=== PATIENT | male | born 1940 | race Caucasian/White ===

== ENCOUNTER 2018-09-15 16:09 | Emergency (ER) | payer MEDICARE, OTHER ==
[~2018-09-15] VITALS: Ht 177.8 cm; Wt 72.6 kg
[~2018-09-15 16:09] MED LIST: ASP81TEC PO; CROMOLYN SODIUM; DOXA2TAB2 PO; LISI10TA PO; OMEP20CA12 PO; OXYC-272 PO; TMZP15C PO; VALERIAN ROOT PO; [UNRECOGNIZED DRUG - OTHER] PO
--- OUTSIDE RECORDS SUMMARY | 2018-09-15 16:26 | XMS REPORT | Continuity of Care Document ---
Author Author [facility] Organization [facility] Address Unknown Phone Unavailable Allergies Active Description Code Type Severity Reaction Onset Reported/Identified Relationship to Patient Clinical Status Yes Sulfa (Sulfonamide Antibiotics) [id number] Drug Allergy Mild N/A 2018 Medications There is no data. Problems Date Dx Coded Attending Type Code Diagnosis Diagnosed By 10/25/2010 Ot 605 11/06/2010 Ot 300.00 11/06/2010 Ot 401.9 11/06/2010 Ot 530.81 11/06/2010 Ot 564.1 11/06/2010 Ot 600.91 11/06/2010 Ot 724.2 11/06/2010 Ot 780.52 04/27/2013 RENETTA JONAS MD Ot 211.3 BENIGN NEOPLASM LG BOWEL 04/27/2013 RENETTA JONAS MD Ot 562.10 DIVERTICULOSIS COLON (W/O MENT OF HEMORR 04/27/2013 RENETTA JONAS MD Ot V76.51 SCREEN MAL NEOP-COLON 05/04/2015 Ot 605 05/04/2015 Ot V72.81 05/04/2015 Ot V74.8 05/04/2015 RENETTA JONAS MD Ot V72.84 05/04/2015 RENETTA JONAS MD Ot V72.84 08/29/2017 RENETTA JONAS MD Ot V72.84 EXAM PRE-OPERATIVE NOS 08/29/2017 RENETTA JONAS MD Ot V72.84 EXAM PRE-OPERATIVE NOS 09/15/2018 RENETTA JONAS MD Ot V72.84 EXAM PRE-OPERATIVE NOS 09/15/2018 RENETTA JONAS MD Ot V72.84 EXAM PRE-OPERATIVE NOS Procedures There is no data. Results There is no data. Encounters ACCT No. Visit Date/Time Discharge Status Pt. Type Provider Facility Loc./Unit Complaint [id number] 04/27/2013 08:00:00 04/27/2013 11:45:00 DIS Outpatient RENETTA JONAS MD [facility] ROUTINE SCREENING [id number] 04/21/2013 08:49:00 04/21/2013 23:59:59 CLS Outpatient RENETTA JONAS MD [facility] PREOP SCREENING [id number] 04/14/2013 12:05:00 04/14/2013 23:59:59 CLS Outpatient RENETTA JONAS MD [facility] PREOP SCREENING [id number] 09/15/2018 16:12:00 ACT Emergency ALEXANDER BRANCH MD [facility] ER PRESSURE BUILDING AT THE BASE OF SKULL [id number] 11/06/2010 05:29:00 Document Registration [id number] 10/25/2010 06:06:00 Document Registration [id number] 10/22/2010 10:10:00 Document Registration
--- OUTSIDE RECORDS SUMMARY | 2018-09-15 16:26 | XMS REPORT | Continuity of Care Document ---
Author Author [facility] Organization [facility] Address Unknown Phone Unavailable Support Name Relationship Address Phone MASTER SERRANO Next Of Kin [address] [place] [address] Insurance Providers Payer Name Policy Number Subscriber Name Relationship [facility] [id number] Colleen Serrano 01 Self / Same As Patient Advance Directives Directive Response Recorded Date Advance Directives N 04/27/13 8:07am Organ Donor Y 04/27/13 8:07am Problems No Known Problems or Medical conditions. Family History History Response Recorded Date/Time Hx Family Cancer Y father prostate 6:23am Hx Family Breast Cancer N 11/06/10 6: 23am Hx Family Lung Cancer N 11/06/10 6:23am Hx Family Colorectal Cancer N 11/06/10 6: 23am Hx Family Cardiac Disorders N 11/06/10 6: 23am Hx Family Stroke N 11/06/10 6:23am Allergies, Adverse Reactions, Alerts Allergen Type Severity Reaction Last Updated Sulfa (Sulfonamide Antibiotics) Allergy Mild 12/31/06 Medications Medication Dose Units Route Sig Qty Days [Cromolyn Sodium] Doxazosin Mesylate 2 Mg PO HS Omeprazole 1 Cap PO daily ac Oxycodone Hcl/Acetaminophen (Percocet 10-325 Mg Tablet) 1 Tab PO Q6H PRN Temazepam 1 Cap PO HS PRN [Valerian Root] 530 Mg PO HS PRN PRN Aspirin (Aspirin Ec 81 Mg) 81 Mg PO DAILY Lisinopril (Zestril) 10 Mg PO HS [Gastrorom] 100 Mg PO DAILY Response Recorded Date/Time Status not known Unknown Results Test Date Result Interp. Ref. Range Activated Partial Thromboplast Time November 06, 2010 3:40am 29 SEC N 24-35 Alanine Aminotransferase (ALT/SGPT) November 06, 2010 3:40am 37 U/L N 30-65 Albumin November 06, 2010 3:40am 3.6 G/DL N 3.4-5.0 Alkaline Phosphatase November 06, 2010 3:40am 68 U/L N 50-136 Aspartate Amino Transf (AST/SGOT) November 06, 2010 3:40am 21 U/L N 15-37 BUN/Creatinine Ratio November 06, 2010 3:40am 17 - Basophils # (Auto) November 06, 2010 3:40am 0.1 10^3/uL N 0.0-0.1 Basophils (%) (Auto) November 06, 2010 3:40am 1 % N 0-10 Blood Urea Nitrogen November 06, 2010 3:40am 17 MG/DL N 7-18 Calcium Level November 06, 2010 3:40am 9.3 MG/DL N 8.5-10.1 Carbon Dioxide Level November 06, 2010 3:40am 26 MMOL/L N 21-32 Chloride Level November 06, 2010 3:40am 103 MMOL/L N 101-110 Creatinine November 06, 2010 3:40am 1.0 MG/ DL N 0.6-1.3 Eosinophils # (Auto) November 06, 2010 3:40am 0.7 10^3/uL H 0.0-0.3 Eosinophils (%) (Auto) November 06, 2010 3:40am 9 % N 0-10 Glucose Level November 06, 2010 3:40am 88 MG/DL N 70-126 Hematocrit November 06, 2010 3:40am 43 % N 40-54 Hemoglobin November 06, 2010 3:40am 15.0 G/ DL N 13.3-17.7 Lymphocytes # (Auto) November 06, 2010 3:40am 2.8 X 10^3 N 1.0-4.0 Lymphocytes (%) (Auto) November 06, 2010 3:40am 39 % N 12-44 Magnesium Level November 06, 2010 3:40am 2.2 MG/DL N 1.8-2.4 Mean Corpuscular Hemoglobin November 06, 2010 3:40am 32 PG N 25-34 Mean Corpuscular Hemoglobin Concent November 06, 2010 3:40am 35 G/DL N 32-36 Mean Corpuscular Volume November 06, 2010 3:40am 90 FL N 80-99 Mean Platelet Volume November 06, 2010 3:40am 12.0 FL H 7.4-10.4 Monocytes # (Auto) November 06, 2010 3:40am 0.7 X 10^3 N 0.0-1.0 Monocytes (%) (Auto) November 06, 2010 3:40am 10 % N 0-12 Myoglobin November 06, 2010 3:40am 49 UG/L N 10-92 Neutrophils # (Auto) November 06, 2010 3:40am 2.9 X 10^3 N 1.8-7.8 Neutrophils (%) (Auto) November 06, 2010 3:40am 40 % L 42-75 Platelet Count November 06, 2010 3:40am 156 10^3/uL N 130-400 Potassium Level November 06, 2010 3:40am 3.9 MMOL/L N 3.6-5.0 Prothromb Time International Ratio November 06, 2010 3:40am 1.0 N 0.8-1.4 Prothrombin Time November 06, 2010 3:40am 13.0 SEC N 12.2-14.7 Red Blood Count November 06, 2010 3:40am 4.75 10^6/uL N 4.35-5.85 Red Cell Distribution Width November 06, 2010 3:40am 12.7 % N 10.0-14.5 Sodium Level November 06, 2010 3:40am 133 MMOL/L L 135-145 Total Bilirubin November 06, 2010 3:40am 0.3 MG/DL N 0.0-1.0 Total Protein November 06, 2010 3:40am 6.9 G/DL N 6.4-8.2 Troponin I November 06, 2010 3:40am < 0.10 MG/ML 0.00-0.10 White Blood Count November 06, 2010 3:40am 7.1 10^3/uL N 4.3-11.0 Lab Scanned Report November 06, 2010 5:29am Referred Lab Report [id number] - Estimat Glomerular Filtration Rate November 06, 2010 3:40am > 60 - Creatine Kinase November 06, 2010 9:58am 43 mg/dl N 21-170 Cardiac Panel Pathologist Review November 06, 2010 3:40am SEE CARDIAC PATH REV - Procedures Procedure Code Date KNEE ARTHROSCOPY/SURGERY 36079 12/31/06 KNEE ARTHROSCOPY/SURGERY 18841 12/31/06 CIRCUM 28 DAYS OR OLDER 38701 10/25/10 MRSA Screen 10/22/10 Encounters Encounter Location Date/Time Discharged Inpatient [facility] 5:29am
[2018-09-15] MEDS ORDERED: PROCHLORPERAZINE 10 MG/2ML INJ (COMPAZINE) IV ONE (16:30)
[2018-09-15] MEDS ORDERED: diphenhydrAMINE 50 MG/ML INJ (BENADRYL) IVP ONE (16:30)
[2018-09-15] MEDS ORDERED: KETOROLAC 30 MG/ML VIAL IVP ONE (16:30)
[2018-09-15] MEDS ORDERED: NS IV 1000 ML 1,000 ML IV SCH (16:30)
--- NOTE | 2018-09-15 16:40 | NUR ---
WHILE GIVING MEDS PATIENT ASKED WHY ARE YOU GIVING ME MEDS BEFORE YOU KNOW WHAT IS WRONG WITH ME INFORMED HIM THAT TRYING TO CONTROL HIS PAIN AND THAT HE CAN REFUSE.
--- NOTE | 2018-09-15 16:46 | NUR ---
TO CT PER W/C
[2018-09-15 16:58] LABS: BASOPHILS % (AUTO) 1 % (0-10); EOSINOPHILS # (AUTO) 0.6 10^3/uL (0.0-0.3); EOSINOPHILS % (AUTO) 7 % (0-10); HEMATOCRIT 42 % (40-54); HEMOGLOBIN 14.3 G/DL (13.3-17.7); LYMPHOCYTES # (AUTO) 2.7 X 10^3 (1.0-4.0); LYMPHOCYTES % (AUTO) 32 % (12-44); MEAN CORPUSCULAR HEMOGLOBIN 31 PG (25-34); MEAN CORPUSCULAR HGB CONC 34 G/DL (32-36); MEAN CORPUSCULAR VOLUME 89 FL (80-99); MEAN PLATELET VOLUME 12.5 FL (7.4-10.4); MONOCYTES # (AUTO) 0.9 X 10^3 (0.0-1.0); MONOCYTES % (AUTO) 10 % (0-12); NEUTROPHILS # (AUTO) 4.2 X 10^3 (1.8-7.8); NEUTROPHILS % (AUTO) 50 % (42-75); PLATELET COUNT 169 10^3/uL (130-400); RED CELL DISTRIBUTION WIDTH 13.2 % (10.0-14.5); WHITE BLOOD COUNT 8.3 10^3/uL (4.3-11.0)
[2018-09-15 17:08] LABS: ALANINE AMINOTRANSFERASE 21 U/L (0-55); ALBUMIN 4.3 GM/DL (3.2-4.5); ALKALINE PHOSPHATASE 39 U/L (40-136); BILIRUBIN,TOTAL 0.7 MG/DL (0.1-1.0); BUN/CREATININE RATIO 15; CALCIUM 9.9 MG/DL (8.5-10.1); CARBON DIOXIDE 27 MMOL/L (21-32); CHLORIDE 98 MMOL/L (98-107); CREATININE SERUM 0.93 MG/DL (0.60-1.30); GFR ESTIMATED > 60; GLUCOSE 83 MG/DL (70-105); POTASSIUM 3.9 MMOL/L (3.6-5.0); SODIUM 134 MMOL/L (135-145); TOTAL PROTEIN 7.2 GM/DL (6.4-8.2)
--- NOTE | 2018-09-15 17:09 | NUR ---
TO ROOM PATIENT FEELING BETTER
--- NOTE | 2018-09-15 17:13 | ED Headache ---
General Chief Complaint: Head/Cervical Problems Stated Complaint: PRESSURE BUILDING AT THE BASE OF SKULL Nursing Triage Note: PT REPORTS PRESSURE IN THE BASE OF HIS SKULL WITH HAVING THE MOST INTENSE HEADACHE EVERY. PTS STATES HE WAS HAVING THIS PAIN FOR 3-4 HOURS BUT 1 HOUR AGO SHE GAVE HIM LISINOPRIL FOR THE PAIN. Nursing Sepsis Screen: No Definite Risk Source: patient Exam Limitations: no limitations History of Present Illness Date Seen by Provider: Sep 15, 2018 Time Seen by Provider: 16:27 Allergies and Home Medications Allergies Coded Allergies: Sulfa (Sulfonamide Antibiotics) (Unverified Allergy, Mild, 09/15/18) Home Medications Doxazosin Mesylate 2 Mg Tablet, 2 MG PO HS, (Reported) Past Dzsgfjp-Ihqioc-Ushqra Hx Patient Social History Alcohol Use: Regular Use Alcohol Beverage of Choice: Beer Recreational Drug Use: No Smoking Status: Never a Smoker Recent Foreign Travel: No Contact w/Someone Who Travel: No Recent Infectious Disease Expo: No Recent Hopitalizations: Yes Seasonal Allergies Seasonal Allergies: No Past Medical History Surgeries: Yes Adenoidectomy, Orthopedic, Tonsillectomy Respiratory: No Cardiac: Yes Hypertension Neurological: No Reproductive Disorders: No Sexually Transmitted Disease: No Genitourinary: Yes Prostate Problems Gastrointestinal: No Musculoskeletal: Yes (ARTHRITIS) Endocrine: No HEENT: No Cancer: Yes Skin Psychosocial: No Blood Disorders: No Physical Exam Vital Signs Vital Signs - First Documented 09/15/18 16:15 Temp 96.7 Pulse 42 Resp 29 B/P (MAP) 136/62 (86) Pulse Ox 99 Capillary Refill : Less Than 3 Seconds Height, Weight, BMI Height: 5'10.00" Weight: 160lbs. oz. 72.336662sa; BMI Method:Stated Progress/Results/Core Measures Results/Orders Lab Results Laboratory Tests Test 09/15/18 16:01 Range/Units White Blood Count 8.3 4.3-11.0 10^3/uL Red Blood Count 4.67 4.35-5.85 10^6/uL Hemoglobin 14.3 13.3-17.7 G/DL Hematocrit 42 40-54 % Mean Corpuscular Volume 89 80-99 FL Mean Corpuscular Hemoglobin 31 25-34 PG Mean Corpuscular Hemoglobin Concent 34 32-36 G/DL Red Cell Distribution Width 13.2 10.0-14.5 % Platelet Count 169 130-400 10^3/uL Mean Platelet Volume 12.5 H 7.4-10.4 FL Neutrophils (%) (Auto) 50 42-75 % Lymphocytes (%) (Auto) 32 12-44 % Monocytes (%) (Auto) 10 0-12 % Eosinophils (%) (Auto) 7 0-10 % Basophils (%) (Auto) 1 0-10 % Neutrophils # (Auto) 4.2 1.8-7.8 X 10^3 Lymphocytes # (Auto) 2.7 1.0-4.0 X 10^3 Monocytes # (Auto) 0.9 0.0-1.0 X 10^3 Eosinophils # (Auto) 0.6 H 0.0-0.3 10^3/uL Basophils # (Auto) 0.0 0.0-0.1 10^3/uL Sodium Level 134 L 135-145 MMOL/L Potassium Level 3.9 3.6-5.0 MMOL/L Chloride Level 98 98-107 MMOL/L Carbon Dioxide Level 27 21-32 MMOL/L Anion Gap 9 5-14 MMOL/L Blood Urea Nitrogen 14 7-18 MG/DL Creatinine 0.93 0.60-1.30 MG/DL Estimat Glomerular Filtration Rate > 60 BUN/Creatinine Ratio 15 Glucose Level 83 70-105 MG/DL Calcium Level 9.9 8.5-10.1 MG/DL Corrected Calcium 9.7 8.5-10.1 MG/DL Total Bilirubin 0.7 0.1-1.0 MG/DL Aspartate Amino Transf (AST/SGOT) 22 5-34 U/L Alanine Aminotransferase (ALT/SGPT) 21 0-55 U/L Alkaline Phosphatase 39 L 40-136 U/L Total Protein 7.2 6.4-8.2 GM/DL Albumin 4.3 3.2-4.5 GM/DL My Orders Orders - LOURDES SON Ct Head Wo-R/O Stroke (09/15/18 16:27) Ketorolac Injection (Toradol Injection) (09/15/18 16:30) Ns Iv 1000 Ml (Sodium Chloride 0.9%) (09/15/18 16:30) Prochlorperazine Injection (Compazine In (09/15/18 16:30) Diphenhydramine Injection (Benadryl Inje (09/15/18 16:30) Cbc With Automated Diff (09/15/18 16:41) Comprehensive Metabolic Panel (09/15/18 16:41) Ekg Tracing (09/15/18 17:13) Medications Given in ED Current Medications Medications Dose Ordered Sig/Crissy Route Start Time Stop Time Status Last Admin Dose Admin Diphenhydramine HCl 25 mg ONCE ONCE IVP 09/15/18 16:30 09/15/18 16:31 DC 09/15/18 16:38 25 MG Ketorolac Tromethamine 30 mg ONCE ONCE IVP 09/15/18 16:30 09/15/18 16:31 DC 09/15/18 16:40 30 MG Prochlorperazine Edisylate 10 mg ONCE ONCE IV 09/15/18 16:30 09/15/18 16:31 DC 09/15/18 16:41 10 MG Vital Signs/I&O 09/15/18 16:15 Temp 96.7 Pulse 42 Resp 29 B/P (MAP) 136/62 (86) Pulse Ox 99 Blood Pressure Mean: 86 Departure Impression Primary Impression: Migraine Disposition: 01 HOME, SELF-CARE Condition: Stable/Unchanged Departure-Patient Inst. Decision time for Depature: 17:39 Referrals: RENETTA JONAS MD Patient Instructions: Migraine Headache (DC) Add. Discharge Instructions: Keep your appointment with Dr. Jonas tomorrow as scheduled. Return back to the emergency room for worsening symptoms or concerns as needed. All discharge instructions reviewed with patient and/or family. Voiced understanding. LOURDES SON Sep 15, 2018 17:13
--- NOTE | 2018-09-15 17:16 | Diagnostic Imaging Report ---
PROCEDURE: CT head wo r/o stroke. TECHNIQUE: Multiple contiguous axial images were obtained through the brain without the use of intravenous contrast. INDICATION: Posterior head pain. FINDINGS: There is no hemorrhage, hydrocephalus, edema, mass, or mass effect. There is mild senescent cortical atrophy with no eduardo hydrocephalus. The basilar cisterns are patent. No sulcal effacement. There is shallow left maxillary sinus air-fluid level and near-complete occlusion of the right maxillary sinus Mild membrane thickening of ethmoid air cells present. The right frontal is hypoplastic and the left frontal sinus is aplastic. There is no mastoid effusion. IMPRESSION: Brain reveals chronic senescent changes. There is paranasal sinusitis. Dictated by: Dictated on workstation # [id number]
[2018-09-15 17:56] VITALS: BP 121/73
== END 2018-09-15 18:02 | disposition home or self-care (01) ==
LOC: EDUNIT# 16:09 → ER 16:12
DX: G43.909 Migraine, unspecified, not intractable, without status migrainosus (principal); I10 Essential (primary) hypertension; Z85.828 Personal history of other malignant neoplasm of skin; Z88.2 Allergy status to sulfonamides; Z90.89 Acquired absence of other organs; X58.XXXA Exposure to other specified factors, initial encounter
CPT/HCPCS: 36415; 70450; 80053; 85025; 93005

== ENCOUNTER → 2018-11-09 | Outpatient (CLI) | payer MEDICARE ==
--- NOTE | 2018-11-09 09:56 | Diagnostic Imaging Report ---
PROCEDURE: MRI left joint lower extremity without contrast. TECHNIQUE: Multiplanar, multisequence non contrast-enhanced MRI of the left lower extremity was accomplished. INDICATION: Knee pain. Prior meniscus repair. FINDINGS: On the proton dense sagittal series, there is slight irregularity of the midportion of the posterior horn of the medial meniscus. This would be consistent with a tear. Whether this is chronic or acute, however, is not certain. The lateral meniscus is intact. The anterior and posterior cruciate ligaments, the quadriceps and infrapatellar tendons, the collateral ligaments, the biceps femoris tendon, the iliotibial band and the medial and lateral retinaculum show no sign of an acute injury. There is mild to moderate degenerative disease of the articular surface of the medial femoral condyle. There is only mild degenerative disease of the lateral femoral condyle. The patellofemoral space is fairly well maintained and there is no sign of chondromalacia patella. There is a small joint effusion present. There is also a small Lobo's cyst. IMPRESSION: 1. The irregular appearance of the midportion and the posterior horn of the medial meniscus would be consistent with a tear. 2. The lateral meniscus and the major ligaments and tendons are intact. 3. There is moderate degenerative disease of the articular surface of the medial femoral condyle and mild degenerative disease of the lateral femoral condyle. The knee joint itself is fairly well maintained given the patient's age. 4. There is a small joint effusion and a small Lobo's cyst. Dictated by: Dictated on workstation # [id number]
== END ==
LOC: RAD 08:44
PROVIDERS: ATTEND Orthopaedic Surgery
DX: S83.242A Other tear of medial meniscus, current injury, left knee, initial encounter (principal); M17.12 Unilateral primary osteoarthritis, left knee; M71.22 Synovial cyst of popliteal space [Baker], left knee; Z98.890 Other specified postprocedural states
CPT/HCPCS: 73721

== ENCOUNTER → 2020-02-14 | Outpatient (CLI) | payer MEDICARE ==
--- NOTE | 2020-02-14 11:31 | Diagnostic Imaging Report ---
Clinical indication: Patient has chronic C-spine pain. Exam: MRI of the cervical spine performed without IV contrast. Sequences include sagittal T1, sagittal T2, sagittal T2 fat-sat, and axial T2. Comparison: Head CT without contrast dated 09/15/2009. Findings: There is no acute cervical spine fracture. Limited visualization of posterior fossa shows no significant abnormality. Cervical spinal cord has normal cord caliber with no definite cord signal abnormality. There is no significant paraspinal soft tissue abnormality. There are degenerative spurs involving the cervical spine and facet arthropathy. Occipital condyle-C1: There is degenerative joint space effusion involving the occipital condyle/C1 articulation regions which may be related to degenerative changes. C1-C2: There are degenerative spurs involving the atlantoodontoid interval anteriorly. There is no significant central canal narrowing. C2-C3: There is moderate right facet arthropathy/hypertrophy and mild right facet arthropathy. There is no significant neural foramen narrowing. There is ligament flavum buckling which causes minimal encroachment upon the central canal. C3-C4: There is mild diffuse disk bulge with hypertrophic left uncinate spur. There is moderate left facet arthropathy and mild right facet arthropathy. There is severe left neural foramen narrowing and mild to moderate right neural foramen narrowing. There is no significant central canal narrowing. C4-C5: There is subtle grade 1 anterolisthesis of C4 on C5. There is severe right facet arthropathy/hypertrophy and mild to moderate left facet arthropathy. There is moderate right neural foramen narrowing and at least mild left neural foramen narrowing. There is no significant central canal narrowing. C5-C6: There is grade 1 anterolisthesis C5 on C6. There is a diffuse disk bulge and severe bilateral facet arthropathy/hypertrophy. There is at least moderate bilateral neural foramen narrowing. There is moderate to severe central canal stenosis. C6-C7: There is grade 1 anterolisthesis C6 on C7. There is diffuse disk bulge with mild loss of disk space height. There is severe left facet arthropathy and mild right facet arthropathy. There is minimal ligament flavum buckling. There is mild to moderate central canal stenosis, mild left neural foramen narrowing and no significant right neural foramen narrowing. C7-T1: There is grade 1 anterolisthesis C7 on T1. There is mild diffuse disk bulge. There is no significant central canal narrowing. There is mild bilateral neural foramen narrowing. There is mild bilateral facet arthropathy. T1-T2: There is subtle grade 1 anterolisthesis of T1 on T2 with moderate bilateral facet arthropathy/hypertrophy. There is at least mild bilateral neural foramen narrowing. There is no significant central canal narrowing. 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 2: There is moderate to severe C5-C6 central canal stenosis due to diffuse disk bulge and facet arthropathy/ligamentum flavum buckling. 3: There is degenerative multilevel grade 1 anterolisthesis of C4 on C5, C5 on C6, C6 on C7, C7 on T1, and T1 on T2. Dictated by: Dictated on workstation # [id number]
== END ==
LOC: RAD 08:29
PROVIDERS: ATTEND Internal Medicine
DX: M43.12 Spondylolisthesis, cervical region (principal); M43.14 Spondylolisthesis, thoracic region; M50.30 Other cervical disc degeneration, unspecified cervical region; M50.222 Other cervical disc displacement at C5-C6 level
CPT/HCPCS: 72141

== ENCOUNTER 2020-02-22 05:28 | Outpatient (RCR) | payer MEDICARE ==
[~2020-02-22] VITALS: Ht 175.3 cm; Wt 68.3 kg
[~2020-02-22 05:28] MED LIST changes: +DOXA8TAB73 PO; +DUTA0.5C17 PO; +GABA-486 PO; +LISI1TAB25 PO; +TEMA15CA PO
== END 2020-02-22 13:17 | disposition home or self-care (01) ==
LOC: PREOP 05:28
PROVIDERS: ATTEND Internal Medicine
DX: Z01.818 Encounter for other preprocedural examination (principal); Z20.828 Contact with and (suspected) exposure to other viral communicable diseases
CPT/HCPCS: 87635

== ENCOUNTER 2020-02-25 07:36 | Day surgery (SDC) | payer MEDICARE ==
--- NOTE | 2019-10-18 01:34 | HISTORY AND PHYSICAL ---
DATE OF SERVICE: COLONOSCOPY HISTORY AND PHYSICAL HISTORY OF PRESENT ILLNESS: The patient is a 79-year-old white male, who presented to the office concerned about weight loss. He had been to [place] where he was started on a probiotic as well as pancreatic enzyme replacement. He was not having any diarrhea. He felt these medications were contributing to his weight loss and stopped them. He reports his energy level has been good. He has had no bright red blood per rectum or melena. He does have some left lower quadrant abdominal discomfort intermittent but denies any bowel habit change. He last underwent colonoscopy 8 years ago for which no neoplasia was identified. He continues to walk a mile or 2 per day without reported difficulty. He was concerned about some peripheral edema and whether or not tied in to previous arrhythmias, which were just benign PVCs. He has had no heart racing or palpitations. He denies orthopnea, PND. FAMILY HISTORY: He is not aware of any family history for colon cancer. PAST MEDICAL HISTORY: Significant for Mobitz type 1 AV block, but no syncope, presyncope or dizziness reported. 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 PHYSICAL EXAMINATION: GENERAL: Reveals slightly anxious white male, otherwise in no acute distress. VITAL SIGNS: His weight was down 5.4 pounds from office weight 4 months ago to 152.4 with a BMI of 25, blood pressure 120/66, heart rate 70 and regular. HEENT: Unremarkable. NECK: Revealed no JVD, adenopathy or bruits. CHEST: Clear to auscultation. CARDIOVASCULAR: Revealed a regular rate and rhythm without murmur, S3 or S4. ABDOMEN: Soft, supple without mass or organomegaly. He has some mild left lower quadrant discomfort to palpation. LABORATORY DATA: Blood tests were reviewed with the patient. Chemistry panel and lipid panels were unremarkable. TSH was mildly elevated at 6.74. PSA normal at 1.24 and CBC was unremarkable with hemoglobin of 15.8, normal white count and platelet count. In addition, the patient did report some intermittent left otalgia and left ear examination was unremarkable with normal ear canal and TMs bilaterally. ASSESSMENT AND PLAN: 1. For further investigation of weight loss and left lower quadrant abdominal pain, the patient was set up for colonoscopy. It has been 8 years since his last procedure. Prep instructions were given and questions were answered. 2. Subclinical hypothyroidism, essentially asymptomatic. We will need to monitor q.6 months TSH and we did discuss signs and symptoms of hypothyroidism. 3. Mild peripheral edema. No evidence to suggest heart failure, good exercise tolerance. The patient reassured just advised salt restriction and leg elevation. We will see him back in one month. Job ID: [id number] DocumentID: [id number] Dictated Date: 10/13/2019 16:03:05 Rand Maker Date: 10/13/2019 16:30:29 Dictated By: RENETTA JONAS MD MTDD
--- NOTE | 2020-02-03 13:19 | HISTORY AND PHYSICAL ---
DATE OF SERVICE: COLONOSCOPY HISTORY AND PHYSICAL HISTORY OF PRESENT ILLNESS: The patient is a 79-year-old white male who was initially seen on October 13 and set up for colonoscopy for left lower quadrant pain and weight loss. He cancelled the procedure due to COVID related issues and was seen in the office again on 02/02/2020. He stated that he continues to have intermittent left lower quadrant abdominal pain with some low back discomfort. His stools have been irregular. He has noted no evidence for bright red blood per rectum or melena. Reports his appetite has been about at baseline. He has continued to exercise but has not been able to regain any of the previous weight that he had lost a little over 10 pounds. He also stated that he had had a fall in [place] several months ago, not from heights, with some mild pain at the base of his neck radiating up to the occiput area. At that time, he had no other symptoms from a neurologic standpoint. He went inner tubing on packed snow. Went over a hill that caused him to go airborne; when he came down, he noted repeat pain at the base of his neck with some tingling in the shoulders bilaterally. He continues to have pain bilaterally and this has been going on for a little over 2 months now. He perceives some weakness in the upper extremities, has had no further falls. Denies any decline in balance, has had no bowel or bladder control problems. Denies any lancinating pain radiating down into his hands or legs. PHYSICAL EXAMINATION: GENERAL: Revealed a white male, who did not appear to be in acute distress. MUSCULOSKELETAL: He had no spinous process pain to palpation but did have some mild paraspinous muscle pain to palpation at the base of the neck. Range of motion is maintained, but he reports discomfort at extremes to the right and the left. This does not cause pain that radiated to her shoulders or arms on extension or flexion. His upper extremity strength was 5+ as well as lower extremity strength with normal gait. VITAL SIGNS: Blood pressure 120/76. HEENT: Unremarkable. Mallampati class 1. Sclerae nonicteric. CHEST: Clear to auscultation. CARDIOVASCULAR: Revealed a regular rate and rhythm without S3 or S4. ABDOMEN: Soft, supple without mass or organomegaly. There is tenderness in the left lower quadrant of the abdomen without rebound or guarding. Bowel sounds are positive. EXTREMITIES: Reveal no cyanosis, clubbing or edema. ASSESSMENT AND PLAN: 1. For further investigation of bowel habit change with left lower quadrant abdominal pain, the patient is set up for diagnostic colonoscopy. 2. Cervicalgia with symptoms suggesting possible cervical neural foraminal impingement, the patient will be set up for an MRI due to the chronicity of the symptoms and his perceived upper extremity weakness over baseline with consideration for my referral pending MRI results. Prep instructions with Suprep kit for colonoscopy were given and questions were answered. Job ID: [id number] DocumentID: [id number] Dictated Date: 02/03/2020 08:33:57 [employer] Technician Date: 02/03/2020 09:08:53 Dictated By: RENETTA JONAS MD MTDD
--- NOTE | 2020-02-21 17:39 | HISTORY AND PHYSICAL ---
DATE OF SERVICE: COLONOSCOPY HISTORY AND PHYSICAL HISTORY OF PRESENT ILLNESS: He was here for followup for screening colonoscopy as well as for followup of neck pain, aggravated by walking. He underwent MRI of the cervical spine that did reveal multilevel significant bilateral neural foramen narrowing as well as moderate to severe C5-C6 central canal stenosis due to a combination of diffuse disk bulging and facet arthropathy with ligamentum flavum buckling according to the radiologist. The patient denies any upper or lower extremity strength and weakness, but he does report pain at the base of the neck. It is worse as the day goes on and aggravated by walking. He is not having any nighttime symptoms. He denies any bowel or bladder control problems. He does feel the pain is having significantly negative impact on his quality of life and he thinks that his balance has been negatively impacted. He has had no reported falls. He has had no abdominal pain and denies bowel habit change. He has noted no bright red blood per rectum or melena. PHYSICAL EXAMINATION: GENERAL: Reveals a white male, appeared to be in no acute distress. Upper and lower extremity strength is 5+. Gait is normal. VITAL SIGNS: Blood pressure 140/70 with a heart rate of 70 and regular. CHEST: Clear. CARDIOVASCULAR: Reveals regular rate and rhythm without murmur, S3 or S4. ABDOMEN: Soft, supple without mass, organomegaly or tenderness. ASSESSMENT AND PLAN: 1. The patient was set up for screening colonoscopy this Friday, COVID testing tomorrow per protocol. 2. Cervical radiculopathy with secondary neck pain. The patient is being referred to Dr. Altamirano with MRI report. No evidence for significant myelopathy or cervical cord syndrome at this time. Job ID: [id number] DocumentID: [id number] Dictated Date: 02/21/2020 16:57:13 Housekeeping Staff Date: 02/21/2020 17:38:52 Dictated By: RENETTA JONAS MD MTDD
[~2020-02-25] VITALS: Ht 175.3 cm; Wt 68.3 kg
[2020-02-25] MEDS ORDERED: LACTATED RINGERS 1,000 ML IV STA (07:42)
--- OUTSIDE RECORDS SUMMARY | 2020-02-25 07:43 | XMS REPORT | Continuity of Care Document ---
Author Organization Unknown Address Unknown Phone Unavailable Allergies Active Description Code Type Severity Reaction Onset Reported/Identified Relationship to Patient Clinical Status Yes Sulfa (Sulfonamide Antibiotics) [id number] Drug Allergy Mild N/A 9 Medications There is no data. Problems Date Dx Coded Attending Type Code Diagnosis Diagnosed By 07/03/1316 RENETTA JONAS MD Ot Z01.818 ENCOUNTER FOR OTHER PREPROCEDURAL EXAMIN 07/03/1316 RENETTA JONAS MD Ot Z20.828 CONTACT W AND EXPOSURE TO OTH VIRAL COMM 10/25/2010 Ot 605 11/06/2010 Ot 300.00 11/06/2010 Ot 401.9 11/06/2010 Ot 530.81 11/06/2010 Ot 564.1 11/06/2010 Ot 600.91 11/06/2010 Ot 724.2 11/06/2010 Ot 780.52 04/27/2013 PRITESH RAY, RENETTA Jack Ot 211. 3 BENIGN NEOPLASM LG BOWEL 04/27/2013 PRITESH RAY, RENETTA Jack Ot 562. 10 DIVERTICULOSIS COLON (W/O MENT OF HEMORR 04/27/2013 RENETTA JONAS MD Ot V76. 51 SCREEN MAL NEOP-COLON 05/04/2015 Ot 605 05/04/2015 Ot V72.81 05/04/2015 Ot V74.8 05/04/2015 RENETTA JONAS MD Ot V72. 84 05/04/2015 RENETTA JONAS MD Ot V72. 84 08/29/2017 RENETTA JONAS MD Ot V72. 84 EXAM PRE-OPERATIVE NOS 08/29/2017 RENETTA JONAS MD Ot V72. 84 EXAM PRE-OPERATIVE NOS 09/15/2018 RENETTA JONAS MD Ot V72. 84 EXAM PRE-OPERATIVE NOS 09/15/2018 RENETTA JONAS MD Ot V72. 84 EXAM PRE-OPERATIVE NOS 09/15/2018 LOURDES SON Ot G43.909 MIGRAINE, UNSP, NOT INTRACTABLE, WITHOUT 09/15/2018 BERNOT, LOURDES Ot I10 ESSENTIAL (PRIMARY) HYPERTENSION 09/15/2018 BERNOT, LOURDES Ot R51 HEADACHE 09/15/2018 BERNOT, LOURDES Ot X58.XXXA EXPOSURE TO OTHER SPECIFIED FACTORS, INI 09/15/2018 BERNOT, LOURDES Ot Z85.828 PERSONAL HISTORY OF OTHER MALIGNANT NEOP 09/15/2018 BERNOT, LOURDES Ot Z88.2 ALLERGY STATUS TO SULFONAMIDES STATUS 09/15/2018 BERNOT, LOURDES Ot Z90.89 ACQUIRED ABSENCE OF OTHER ORGANS 09/15/2018 PRITESH RAY, RENETTA Jack Ot V72. 84 EXAM PRE-OPERATIVE NOS 09/15/2018 RENETTA JONAS MD Ot V72. 84 EXAM PRE-OPERATIVE NOS 09/15/2018 RENETTA JONAS MD Ot V72. 84 EXAM PRE-OPERATIVE NOS 09/15/2018 RENETTA JONAS MD Ot V72. 84 EXAM PRE-OPERATIVE NOS 09/17/2018 ADELAIDA LOURDES Ot G43.909 MIGRAINE, UNSP, NOT INTRACTABLE, WITHOUT 09/17/2018 BERNOT, LOURDES Ot I10 ESSENTIAL (PRIMARY) HYPERTENSION 09/17/2018 BERNOT, LOURDES Ot R51 HEADACHE 09/17/2018 BERNOT, LOURDES Ot X58.XXXA EXPOSURE TO OTHER SPECIFIED FACTORS, INI 09/17/2018 BERNOT, LOURDES Ot Z85.828 PERSONAL HISTORY OF OTHER MALIGNANT NEOP 09/17/2018 BERNOT, LOURDES Ot Z88.2 ALLERGY STATUS TO SULFONAMIDES STATUS 09/17/2018 BERNOT, LOURDES Ot Z90.89 ACQUIRED ABSENCE OF OTHER ORGANS 09/28/2018 RENTETA JONAS MD Ot V72. 84 EXAM PRE-OPERATIVE NOS 09/28/2018 RENETTA JONAS MD Ot V72. 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 12 SPONDYLOLISTHESIS, CERVICAL REGION 02/16/2020 RENETTA JONAS MD Ot M43. 14 SPONDYLOLISTHESIS, THORACIC REGION 02/16/2020 RENETTA JONAS MD Ot M50.222 OTHER CERVICAL DISC DISPLACEMENT AT C5-C 02/16/2020 RENETTA JONAS MD Ot M50. 30 OTHER CERVICAL DISC DEGENERATION, UNSP C Procedures There is no data. Results Test Result Range Complete blood count (CBC) with automate d white blood cell (WBC) differential - 09/15/18 16:01 Blood leukocytes automated count (number/volume) 8.3 10*3/uL 4.3-11.0 Blood erythrocytes automated count (number/volume) 4.67 10*6/uL 4.35-5.85 Venous blood hemoglobin measurement (mass/volume) 14.3 g/dL 13.3-17.7 Blood hematocrit (volume fraction) 42 % 40-54 Automated erythrocyte mean corpuscular volume 89 [ foz_us] 80-99 Automated erythrocyte mean corpuscular h emoglobin (mass per erythrocyte) 31 pg 25-34 Automated erythrocyte mean corpuscular h emoglobin concentration measurement (mass/volume) 34 g/dL 32-36 Automated erythrocyte distribution width ratio 13. 2 % 10.0- 14.5 Automated blood platelet count (count/volume) 169 10*3/uL 130-400 Automated blood platelet mean volume measurement 12.5 [foz_us] 7.4-10.4 Automated blood neutrophils/100 leukocytes 50 % 42-75 Automated blood lymphocytes/100 leukocytes 32 % 12-44 Blood monocytes/100 leukocytes 10 % 0-12 Automated blood eosinophils/100 leukocytes 7 % 0-10 Automated blood basophils/100 leukocytes 1 % 0-10 Blood neutrophils automated count (number/volume) 4.2 10*3 1.8-7.8 Blood lymphocytes automated count (number/volume) 2.7 10*3 1.0-4.0 Blood monocytes automated count (number/volume) 0. 9 10*3 0.0-1.0 Automated eosinophil count 0.6 10*3/uL 0 .0-0.3 Automated blood basophil count (count/volume) 0.0 10*3/uL 0.0-0.1 Comprehensive metabolic panel - 09/15/18 16:01 Serum or plasma sodium measurement (moles/volume) 134 mmol/L 135-145 Serum or plasma potassium measurement (moles/volume) 3.9 mmol/L 3.6-5.0 Serum or plasma chloride measurement (moles/volume) 98 mmol/L 98-107 Carbon dioxide 27 mmol/L 21-32 Serum or plasma anion gap determination (moles/volume) 9 mmol/L 5-14 Serum or plasma urea nitrogen measurement (mass/volume ) 14 mg/dL 7-18 Serum or plasma creatinine measurement (mass/volume) 0.93 mg/dL 0.60-1.30 Serum or plasma urea nitrogen/creatinine mass ratio 15 NRG Serum or plasma creatinine measurement w ith calculation of estimated glomerular filtration rate > NRG Serum or plasma glucose measurement (mass/volume) 83 mg/dL 70-105 Serum or plasma calcium measurement (mass/volume) 9.9 mg/dL 8.5-10.1 Serum or plasma total bilirubin measurement (mass/volu me) 0.7 mg/dL 0.1-1.0 Serum or plasma alkaline phosphatase roxi surement (enzymatic activity/volume) 39 U/L 40-136 Serum or plasma aspartate aminotransfera se measurement (enzymatic activity/volume) 22 U/L 5-34 Serum or plasma alanine aminotransferase measurement (enzymatic activity/volume) 21 U/L 0-55 Serum or plasma protein measurement (mass/volume) 7.2 g/dL 6.4-8.2 Serum or plasma albumin measurement (mass/volume) 4.3 g/dL 3.2-4.5 CALCIUM CORRECTED 9.7 mg/dL 8.5-10.1 Coronavirus SARS-CoV-2 SO 2018 0 08:16 Coronavirus Ab [Units/volume] in Serum Negative Negative Encounters ACCT No. Visit Date/Time Discharge Status Pt. Type Provider Facility Loc./Unit Complaint [id number] 02/22/2020 05:28:00 020 13:17:00 DIS Outpatient RENETTA JONAS MD [facility] PREOP COLONOSCOPY [id number] 02/14/2020 08:29:00 23:59:59 CLS Outpatient RENETTA JONAS MD [facility] RAD BIA UPPER EXTREMITY [id number] 10/29/2019 08:00:00 23:59:59 CLS Preadmit RENETTA JONAS MD [facility] ENDO LLQ ABD PAIN/WT LOSS. [id number] 11/09/2018 08:44:00 019 23:59:59 CLS Outpatient VIVIANA MOHR MD [facility] RAD ACUTE TEAR OF MEDIAL M ENISCUS [id number] 09/15/2018 16:12:00 019 18:02:[address] [facility] ER PRESSURE BUILDING AT E BASE OF SKULL [id number] 04/27/2013 08:00:00 013 11:45:00 DIS Outpatient RENETTA JONAS MD [facility] SDC ROUTINE SCREENING [id number] 04/21/2013 08:49:00 013 23:59:59 CLS Outpatient RENETTA JONAS MD [facility] PREOP SCREENING [id number] 04/14/2013 12:05:00 013 23:59:59 CLS Outpatient RENETTA JONAS MD [facility] PREOP SCREENING [id number] 11/06/2010 05:29:00 Document Registration [id number] 10/25/2010 06:06:00 Document Registration [id number] 10/22/2010 10:10:00 Document Registration
[2020-02-25] MEDS ORDERED: LIDOCAINE JELLY 2% 6 ML SYRINGE MM PRN (07:45)
[2020-02-25] MEDS ORDERED: LACTATED RINGERS 1,000 ML IV ONE (07:48)
[2020-02-25 08:05] VITALS: BP 114/78
[2020-02-25] MEDS ORDERED: PROPOFOL INJECTION 50 ML IV ONE (08:10)
[2020-02-25] MEDS ORDERED: MIDAZOLAM 2 MG/2 ML (VERSED) VIAL ONE (08:11)
--- NOTE | 2020-02-25 08:12 | Pre-Op Note & Conscious Sedat ---
Pre-Operative Progress Note H&P Reviewed The H&P was reviewed, patient examined and no changes noted. Date H&P Reviewed: Feb 25, 2020 Time H&P Reviewed: 08:05 Conscious Sedation Pre-Proced ASA Score 2 For ASA 3 and 4: Consider anesthesia and medical clearance. Also, for patients with a history of failed moderate sedation consider anesthesia. Airway Lungs Heart ASA score ASA 1: a normal healthy patient ASA 2: a patient with a mild systemic disease (mid diabetes, controlled hypertension, obesity ASA 3: a patient with a severe systemic disease that limits activity (angina, COPD, prior Myocardial infarction) ASA 4: a patient with an incapacitating disease that is a constant threat to life (CHF, renal failure) ASA 5: a moribund patient not expected to survive 24 hrs. (ruptured aneurysm) ASA 6: a declared brain- patient whose organs are being harvested. For emergent operations, add the letter E after the classification Mallampati Classification Grade 1 Sedation Plan Analgesia, Amnesia, Plan communicated to team members, Discussed options with patient/fam, Discussed risks with patient/fam The patient is an appropriate candidate to undergo the planned procedure, sedation, and anesthesia. The patient immediately re-assessed prior to indication. RENETTA JONAS MD Feb 25, 2020 08:12
[2020-02-25] MEDS ORDERED: LACTATED RINGERS 1,000 ML IV SCH (08:15)
[2020-02-25] MEDS ORDERED: D5 LR IV SOLUTION 1,000 ML IV SCH (08:15)
[2020-02-25 08:35] VITALS: BP 88/53
[2020-02-25 08:40] VITALS: BP 85/46
[2020-02-25 08:45] VITALS: BP 93/49
[2020-02-25 09:15] VITALS: BP 116/72
--- NOTE | 2020-02-25 10:22 | Anesthesia-General Post-Op ---
MAC Patient Condition Mental Status/LOC: Same as Preop Cardiovascular: Satisfactory Nausea/Vomiting: Absent Respiratory: Satisfactory Pain: Controlled Complications: Absent Post Op Complications Complications None Follow Up Care/Instructions Patient Instructions None needed. Anesthesiology Discharge Order Discharge Order Patient is doing well, no complaints, stable vital signs, no apparent adverse anesthesia problems. No complications reported per nursing. CHAD NEELY CRNA Feb 25, 2020 10:22
--- NOTE | 2020-02-25 11:10 | OPERATIVE REPORT ---
DATE OF SERVICE: COLONOSCOPY SUMMARY INDICATION FOR THE PROCEDURE: Diagnostic colonoscopy for left lower quadrant abdominal pain and weight loss. DESCRIPTION OF PROCEDURE: The patient was placed in the left lateral decubitus position. Prior to undergoing colonoscopy, digital rectal evaluation was performed. Anal sphincter tone was normal and the perianal reflexes intact. The prostate was small in size, anodular and nontender to digital inspection. No abnormalities were noted on digital evaluation of the anal canal or distal rectal vault. The colonoscope was then inserted into the rectum and under direct visualization advanced to the cecum. The cecum was identified by identification of ileocecal valve and cecal strap. Photographic documentation was obtained. Quality of prep was good. FINDINGS: There was no evidence for internal or external hemorrhoids and the rectum was unremarkable. A moderate number of small to medium size sigmoid diverticulum were present with some haustral hypertrophy. There was no endoscopic evidence to suggest underlying diverticulitis. The descending colon, splenic flexure, transverse colon, hepatic flexure, ascending colon and cecum were unremarkable with no evidence for neoplasia or vascular malformation or inflammatory change. ASSESSMENT: Moderate diverticular disease confined to the sigmoid colon was present without evidence for diverticulitis. This is otherwise normal colonoscopy to the cecum. Findings were discussed with the patient. Patient reassured. In addition, the patient does have recently documented cervical stenosis at C5-6 level and had questions about his upcoming appointment with the neurosurgeon. He reports that symptoms have gotten a little bit better and he is not perceiving weakness. He has had no bowel or bladder control problems and had questions about the natural progression, which we discussed as being quite variable, but over time did tend to worsen. 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 Discussed importance establishing with the neurosurgeon and it does not mean that he is going there for a definitive need for surgery. In answering his questions, an additional 15 minutes of care time was spent. Job ID: [id number] DocumentID: [id number] Dictated Date: 02/25/2020 10:02:45 Hall Cleaner Date: 02/25/2020 11:09:44 Dictated By: RENETTA JONAS MD [facility]
== END 2020-02-25 10:00 | disposition home or self-care (01) ==
LOC: ENDO 07:36
PROVIDERS: ATTEND Internal Medicine
DX: K57.30 Diverticulosis of large intestine without perforation or abscess without bleeding (principal); R63.4 Abnormal weight loss; R10.32 Left lower quadrant pain; M48.02 Spinal stenosis, cervical region; M54.12 Radiculopathy, cervical region; I44.1 Atrioventricular block, second degree; E02 Subclinical iodine-deficiency hypothyroidism; R60.9 Edema, unspecified; Z85.820 Personal history of malignant melanoma of skin

== ENCOUNTER → 2020-06-28 | Outpatient (CLI) | payer MEDICARE ==
[~2020-06-28] MED LIST changes: -LISI1TAB25 PO; +LISI1TAB46 PO
== END ==
LOC: LABNPT 07:05
PROVIDERS: ATTEND Internal Medicine
DX: M79.10 Myalgia, unspecified site (principal); R09.89 Other specified symptoms and signs involving the circulatory and respiratory systems; R09.81 Nasal congestion; Z20.828 Contact with and (suspected) exposure to other viral communicable diseases
CPT/HCPCS: 87635

== ENCOUNTER → 2020-09-25 | Outpatient (CLI) | payer MEDICARE ==
[~2020-09-25] MED LIST changes: -DUTA0.5C17 PO; +DUTA0.5C36 PO; +GADOBUTROL 7.5 MMOL/7.5 ML (GADAVIST) VIAL IV ONE
--- NOTE | 2020-09-25 15:09 | Diagnostic Imaging Report ---
PROCEDURE: MR imaging of the brain with and without contrast. TECHNIQUE: Multiplanar, multisequence MR imaging of the brain was performed with and without contrast. INDICATION: Vision loss and headaches. History of melanoma. COMPARISON: CT head on 09/15/2018. Findings: No acute ischemia, mass, or hemorrhage. No abnormal enhancement. A small amount of scattered T2 hyperintense signal seen in the subcortical white matter. The ventricles and cortical sulci are mildly prominent. The basilar cisterns are symmetric and unremarkable. The sellar and suprasellar regions have a normal appearance. The brainstem and posterior fossa are unremarkable. Retained secretions are seen throughout the paranasal sinuses, greatest in the right maxillary sinus and bilateral ethmoid sinuses. Mastoid air cells demonstrate normal signal characteristics. The globes and orbits are symmetric and unremarkable. No abnormal enhancement is seen in the globes and orbits. No evidence of inflammatory changes in the retrobulbar fat. The scalp and calvarium have a normal appearance. IMPRESSION: 1. No acute ischemia, mass, or hemorrhage. No abnormal enhancement suggest metastatic disease. 2. Generalized parenchymal volume loss. 3. Small amount of scattered chronic microvascular disease. 4. Paranasal sinus disease, greatest in the bilateral ethmoid sinuses and right maxillary sinus. Dictated by: Dictated on workstation # [id number]
--- NOTE | 2020-09-25 15:27 | Diagnostic Imaging Report ---
PROCEDURE: US carotid duplex, bilateral. TECHNIQUE: Multiple real-time grayscale images were obtained over the carotid arteries in various projections, bilaterally. Additional spectral analysis and color Doppler duplex images were also obtained. INDICATION: Transient vision loss. FINDINGS: There is mild plaque at right carotid bulb and carotid bifurcation extending into the proximal right internal carotid artery. Velocities in both carotid systems appear normal. No velocity elevation or high-grade stenosis is detected. Both vertebral arteries show antegrade flow. IMPRESSION: Mild right carotid plaque. There are no findings to suggest hemodynamically significant stenosis. Parameters based on the consensus panel Gonzalez-Scale and Doppler ultrasound criteria published June 2003, Radiology, Volume 229. DOPPLER (peak systolic velocity M/S Right Left CCA 83 66 ICA Proximal 53 80 ICA Mid 61 50 ICA Distal 72 115 RATIO .70 1.4 ECA 84 80 VERT 34 64 Dictated by: Dictated on workstation # [id number]
== END ==
LOC: RAD 12:00
PROVIDERS: ATTEND Internal Medicine
DX: H53.123 Transient visual loss, bilateral (principal); G31.89 Other specified degenerative diseases of nervous system; I67.89 Other cerebrovascular disease; I65.21 Occlusion and stenosis of right carotid artery; J34.89 Other specified disorders of nose and nasal sinuses
CPT/HCPCS: 70553; 93880

== ENCOUNTER → 2021-05-09 | Outpatient (CLI) | payer MEDICARE, OTHER ==
[~2021-05-09] MED LIST changes: +CATHETER FLUSH 10 ML SYR IV PRN; -GADOBUTROL 7.5 MMOL/7.5 ML (GADAVIST) VIAL IV ONE; +HOLD METFORMIN - RECEIVED CONTRAST 20 ML VIAL IV SCH; +IOHEXOL 350 MG/ML 100 ML (OMNIPAQUE 350) VIAL IV ONE; +NS 100 ML (IVPB) BAG IV ONE
[2021-05-09 07:59] LABS: CREATININE SERUM 0.77 MG/DL (0.60-1.30)
--- NOTE | 2021-05-09 09:06 | Diagnostic Imaging Report ---
EXAMINATION: CT abdomen with intravenous contrast. TECHNIQUE: Multiple contiguous axial images were obtained through the abdomen after the administration of intravenous contrast. All CT scans use one or more of the following dose optimizing techniques: automated exposure control, MA and/or KvP adjustment based on patient size and exam type or iterative reconstruction. HISTORY: WEIGHT LOSS COMPARISON: None available. FINDINGS: Lung bases: The lung bases are clear. Solid organs: There is a 1.2 cm peripherally enhancing lesion within hepatic segment 8 (series 2 image 23). This lesion is not seen on the delayed image. The gallbladder is normal. There is no biliary ductal dilation. Pancreas is normal. Spleen is normal. Adrenal glands are normal. The kidneys are normal without hydronephrosis. Bowel: No bowel obstruction. There are a few scattered colonic diverticula. Peritoneum: There is no intraperitoneal free fluid or free air. No suspicious lymphadenopathy. Vasculature: Calcification of the aorta without aneurysm. Musculoskeletal: Degenerative changes of the spine without suspicious osseous lesion or compression fracture. There are bilateral L5 pars defects. IMPRESSION: 1. Indeterminate 1.2 cm arterially enhancing lesion within hepatic segment 8 of the liver. Recommend further evaluation with dedicated MRI with Gadavist IV contrast liver mass protocol 2. Otherwise unremarkable CT of the abdomen. Dictated by: Dictated on workstation # [id number]
== END ==
LOC: RAD 07:08
PROVIDERS: ATTEND Internal Medicine
DX: K76.9 Liver disease, unspecified (principal); M79.642 Pain in left hand
CPT/HCPCS: 36415; 74160; 82565; 84520

== ENCOUNTER → 2021-05-22 | Outpatient (CLI) | payer MEDICARE, OTHER ==
[~2021-05-22] MED LIST changes: -CATHETER FLUSH 10 ML SYR IV PRN; +GADOTERATE 0.5 MMOL/ML (CLARISCAN) 15 ML VIAL IV ONE; -HOLD METFORMIN - RECEIVED CONTRAST 20 ML VIAL IV SCH; -IOHEXOL 350 MG/ML 100 ML (OMNIPAQUE 350) VIAL IV ONE; -NS 100 ML (IVPB) BAG IV ONE
--- NOTE | 2021-05-22 15:37 | Diagnostic Imaging Report ---
EXAMINATION: MRI of the abdomen with and without contrast. TECHNIQUE: Multiplanar, multisequence MR images of the abdomen were obtained with and without intravenous contrast. HISTORY: Liver lesion evaluation COMPARISON: CT abdomen 05/09/2021 FINDINGS: Liver: The liver is normal in signal and smooth in contour. There is a 1.3 cm T2 hyperintense, T1 hypointense lesion within hepatic segment 5 which demonstrates early enhancement on arterial phase with persistent enhancement on delayed images (series 1001 image 42). The portal and hepatic veins are patent. Gallbladder and Bile Ducts: There is no intrahepatic or extrahepatic bile duct dilation. There are no filling defects in the gallbladder or common bile duct. Pancreas: The pancreas is normal in volume, signal intensity and enhancement. There is no dilation of the main pancreatic duct. Kidneys: There is no hydronephrosis. Adrenal glands: There is no adrenal gland nodule or thickening. Spleen: The spleen is normal in size without focal lesion. Lymph Nodes: There is no suspicious lymphadenopathy. Other: There is no ascites. IMPRESSION: 1. 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 Less likely differential consideration could include atypical hemangioma, focal nodular hyperplasia, or adenoma. Consider MRI followup in one year with Eovist contrast. Dictated by: Dictated on workstation # [id number]
== END ==
LOC: RAD 13:15
PROVIDERS: ATTEND Internal Medicine
DX: K76.9 Liver disease, unspecified (principal)
CPT/HCPCS: 74183

== ENCOUNTER → 2021-05-30 | Outpatient (CLI) | payer MEDICARE, OTHER ==
[~2021-05-30] MED LIST changes: +CATHETER FLUSH 10 ML SYR IV PRN; -GADOTERATE 0.5 MMOL/ML (CLARISCAN) 15 ML VIAL IV ONE; +HOLD METFORMIN - RECEIVED CONTRAST 20 ML VIAL IV SCH; +IOHEXOL 350 MG/ML 100 ML (OMNIPAQUE 350) VIAL IV ONE; +NS 100 ML (IVPB) BAG IV ONE
--- NOTE | 2021-05-30 10:18 | Diagnostic Imaging Report ---
EXAMINATION: CT chest with and without intravenous contrast. TECHNIQUE: Multiple contiguous axial images were obtained through the chest before and after the uneventful administration of intravenous contrast. All CT scans use one or more of the following dose optimizing techniques: automated exposure control, MA and/or KvP adjustment based on patient size and exam type or iterative reconstruction. HISTORY: Left sided rib pain, weight loss. COMPARISON: None available. FINDINGS: Thyroid: The thyroid is normal. Mediastinum: The heart size is normal without significant pericardial effusion. Calcifications of the aorta and coronary vessels. Thoracic aorta is normal in caliber. No suspicious lymphadenopathy. Lungs and airways: The lungs are clear without consolidation, pleural effusion, or pneumothorax. There is a subcentimeter triangular-shaped nodule along the left major fissure, likely an intrapleural lymph node. There are scattered calcified granulomas present within the lungs. There is a 0.3 cm right upper lobe pulmonary nodule. The airways are normal. Upper abdomen: Stable appearance of the enhancing lesion within the liver recently characterized on MRI. Musculoskeletal: Degenerative changes of the spine without suspicious osseous lesion or compression fracture. No acute osseous abnormality is seen. IMPRESSION: 1. No acute abnormality is seen within the chest. 2. Right upper lobe pulmonary nodule measuring 0.3 cm. Dictated by: Dictated on workstation # [id number]
== END ==
LOC: RAD 08:45
PROVIDERS: ATTEND Internal Medicine
DX: R91.1 Solitary pulmonary nodule (principal); R07.81 Pleurodynia; R63.4 Abnormal weight loss
CPT/HCPCS: 71270

== ENCOUNTER 2021-09-02 13:34 | Emergency (ER) | payer MEDICARE, OTHER ==
[~2021-09-02] VITALS: Ht 167.7 cm; Wt 62.5 kg
[~2021-09-02 13:34] MED LIST changes: -CATHETER FLUSH 10 ML SYR IV PRN; -HOLD METFORMIN - RECEIVED CONTRAST 20 ML VIAL IV SCH; -IOHEXOL 350 MG/ML 100 ML (OMNIPAQUE 350) VIAL IV ONE; -NS 100 ML (IVPB) BAG IV ONE
--- NOTE | 2021-09-02 13:58 | ED Cardiac General ---
History of Present Illness General Chief Complaint: Cardiac/General Problems Stated Complaint: BACK OF NECK/SHOULDER PAIN/BP DROPPED Nursing Triage Note: PT AMB TO RM 7 WITH COMPLAINT OF RIGHT SHOULDER, RIGHT HEAD/NECK PRESSURE THAT STARTED TODAY AFTER BECAME LIGHTHEADED/DIZZY IN THE KITCHEN. STATES TOOK BP AFTER HE FELT DIZZY, 87/42. Source: patient Exam Limitations: no limitations History of Present Illness Date Seen by Provider: Sep 02, 2021 Time Seen by Provider: 13:38 Initial Comments 81-year-old male with past medical history of hypertension coming in due to pressure type discomfort in his right posterior upper back near his shoulder going up his neck that started today couple hours ago. He says for the past month he has been dealing with low blood pressures in the morning and high blood pressures in the afternoon. He takes lisinopril daily as well as doxazosin for prostate issues. He continues to take these. He says earlier he was in the kitchen standing up, felt slightly lightheaded, took his blood pressure and it was 87/42. Typically when this happens he takes caffeine pills and drinks tea to try to get his blood pressure to elevate. Normally this works. He says other than a slow heart rate which he has had for years he does not really have any significant heart issues. He follows with a hospice team lead in [place] yearly and has had essentially normal echoes and no significant disease. I believe he does have sinus bradycardia and every once while he skips a beat but they have not had any significant concerns. He says he has been eating and drinking normally, no fever, no shortness of breath, cough, abdominal pain, nausea, vomiting, diarrhea, focal weakness or numbness, dysuria, rash, or any other concerns. He says he essentially is feeling back to normal right now. Allergies and Home Medications Allergies Coded Allergies: Sulfa (Sulfonamide Antibiotics) (Unverified Allergy, Mild, 09/15/18) Patient Home Medication List Home Medication List Reviewed: Yes Doxazosin Mesylate (Doxazosin Mesylate) 8 Mg Tablet, 8 MG PO HS, (Reported) Entered as Reported by: ARSLAN RODRIGUEZ on 02/21/20 1155 Dutasteride (Dutasteride) 0.5 Mg Capsule, 0.5 MG PO HS, (Reported) Entered as Reported by: ARSLAN RODRIGUEZ on 02/21/20 1155 Gabapentin (Gabapentin) 100 Mg Capsule, 100 MG PO HS, (Reported) Entered as Reported by: ARSLAN RODRIGUEZ on 02/21/20 1155 Lisinopril/Hydrochlorothiazide (Lisinopril-Hctz 20-12.5 mg Tab) 1 Each Tablet, 1 EACH PO DAILY PRN for high blood pressure, (Reported) Entered as Reported by: ARSLAN RODRIGUEZ on 02/21/20 115 Temazepam (Temazepam) 15 Mg Capsule, 15 MG PO HS, (Reported) Entered as Reported by: ARSLAN RODRIGUEZ on 02/21/20 1155 Review of Systems Review of Systems Constitutional: No chills, No fever EENTM: No Blurred Vision Respiratory: Denies Cough, Denies Shortness of Air Cardiovascular: Denies Chest Pain; Lightheadedness Gastrointestinal: Denies Abdominal Pain, Denies Diarrhea, Denies Nausea, Denies Vomiting Musculoskeletal: no symptoms reported Skin: no symptoms reported Psychiatric/Neurological: No Symptoms Reported Endocrine: No Symptoms Reported Hematologic/Lymphatic: No Symptoms Reported All Other Systems Reviewed Negative Unless Noted: Yes Past Xfxqnza-Acptfa-Yzwhwx Hx Patient Social History Tobacco Use?: No Use of E-Cig and/or Vaping dev: No Substance use?: No Alcohol Use?: Yes Alcohol Frequency: Once in a while Pt feels they are or have been: No Immunizations Up To Date Influenza Vaccine Up-to-Date: Yes; Up-to-Date First/Initial COVID19 Vaccinat: SPRING 2020 Second COVID19 Vaccination Manan: SPRING 2020 COVID19 Vaccine Knot Tier: YAAKOV Seasonal Allergies Seasonal Allergies: No Past Medical History Surgeries: Yes (ing hernia x3, hemorrhoidectomy, circ, knee scope, melanoma rem eugenia) Adenoidectomy, Orthopedic, Tonsillectomy Respiratory: No Cardiac: Yes Hypertension Neurological: No Reproductive Disorders: No Sexually Transmitted Disease: No Genitourinary: Yes Prostate Problems Gastrointestinal: Yes (LLQ abd pain, wt loss) Musculoskeletal: Yes Arthritis Endocrine: No HEENT: No Cancer: Yes Skin What Type of Treatment Did You: Surgical Intervention Psychosocial: No Integumentary: No Blood Disorders: No Physical Exam Vital Signs Vital Signs - First Documented 09/02/21 13:37 Pulse 57 Resp 15 B/P (MAP) 158/57 (90) Pulse Ox 95 O2 Delivery Room Air Capillary Refill : Less Than 3 Seconds Height, Weight, BMI Height: 5'10.00" Weight: 160lbs. oz. 72.399486wk; 22.00 BMI Method:Stated General Appearance: No Apparent Distress, WD/WN HEENT: PERRL/EOMI, Normal ENT Inspection, Pharynx Normal Neck: Full Range of Motion, Normal Inspection, Non Tender, Supple Respiratory: Chest Non Tender, Lungs Clear, Normal Breath Sounds, No Accessory Muscle Use, No Respiratory Distress Cardiovascular: No Edema, Normal Peripheral Pulses, Bradycardia Gastrointestinal: Normal Bowel Sounds, Non Tender, Soft; No Distended, No Guarding Extremity: Normal Capillary Refill, Normal Inspection, Normal Range of Motion, Non Tender, No Calf Tenderness, No Pedal Edema Neurologic/Psychiatric: Alert, Oriented x3, No Motor/Sensory Deficits, Normal Mood/Affect, typing checker II-XII Norm as Tested; No Abnormal Gait Skin: Normal Color, Warm/Dry Lymphatic: No Adenopathy Progress/Results/Core Measures Results/Orders Lab Results Laboratory Tests Test 09/02/21 14:13 Range/Units White Blood Count 8.5 4.3-11.0 10^3/uL Red Blood Count 4.61 4.30-5.52 10^6/uL Hemoglobin 14.5 13.3-17.7 g/dL Hematocrit 43 40-54 % Mean Corpuscular Volume 93 80-99 fL Mean Corpuscular Hemoglobin 32 25-34 pg Mean Corpuscular Hemoglobin Concent 34 32-36 g/dL Red Cell Distribution Width 12.4 10.0-14.5 % Platelet Count 148 130-400 10^3/uL Mean Platelet Volume 12.4 H 9.0-12.2 fL Immature Granulocyte % (Auto) 0 % Neutrophils (%) (Auto) 62 42-75 % Lymphocytes (%) (Auto) 22 12-44 % Monocytes (%) (Auto) 10 0-12 % Eosinophils (%) (Auto) 5 0-10 % Basophils (%) (Auto) 1 0-10 % Neutrophils # (Auto) 5.3 1.8-7.8 10^3/uL Lymphocytes # (Auto) 1.9 1.0-4.0 10^3/uL Monocytes # (Auto) 0.8 0.0-1.0 10^3/uL Eosinophils # (Auto) 0.4 H 0.0-0.3 10^3/uL Basophils # (Auto) 0.1 0.0-0.1 10^3/uL Immature Granulocyte # (Auto) 0.0 0.0-0.1 10^3/uL Prothrombin Time 14.0 12.2-14.7 SEC INR Comment 1.0 0.8-1.4 Activated Partial Thromboplast Time 32 24-35 SEC Sodium Level 133 L 135-145 MMOL/L Potassium Level 4.3 3.6-5.0 MMOL/L Chloride Level 100 98-107 MMOL/L Carbon Dioxide Level 21 21-32 MMOL/L Anion Gap 12 5-14 MMOL/L Blood Urea Nitrogen 16 7-18 MG/DL Creatinine 0.83 0.60-1.30 MG/DL Estimat Glomerular Filtration Rate 88 BUN/Creatinine Ratio 19 Glucose Level 94 70-105 MG/DL Calcium Level 8.8 8.5-10.1 MG/DL Corrected Calcium 9.0 8.5-10.1 MG/DL Magnesium Level 2.2 1.6-2.4 MG/DL Total Bilirubin 0.5 0.1-1.0 MG/DL Aspartate Amino Transf (AST/SGOT) 16 5-34 U/L Alanine Aminotransferase (ALT/SGPT) 14 0-55 U/L Alkaline Phosphatase 42 40-136 U/L Troponin I < 0.028 <0.028 NG/ML B-Type Natriuretic Peptide 178.1 H <100.0 PG/ML Total Protein 6.3 L 6.4-8.2 GM/DL Albumin 3.8 3.2-4.5 GM/DL My Orders Orders - LUISA ONTIVEROS MD Cbc With Automated Diff (09/02/21 13:57) Magnesium (09/02/21 13:57) Chest 1 View, Ap/Pa Only (09/02/21 13:57) Ekg Tracing (09/02/21 13:57) Comprehensive Metabolic Panel (09/02/21 13:57) Protime With Inr (09/02/21 13:57) Partial Thromboplastin Time (09/02/21 13:57) O2 (09/02/21 13:57) Monitor-Rhythm Ecg Trace Only (09/02/21 13:57) Ed Iv/Invasive Line Start (09/02/21 13:57) Bnp Diego (09/02/21 13:57) Troponin I Diego (09/02/21 13:57) Acetaminophen Tablet (Tylenol Tablet) (09/02/21 14:00) Medications Given in ED Current Medications Medications Dose Ordered Sig/Crissy Route Start Time Stop Time Status Last Admin Dose Admin Acetaminophen 1,000 mg ONCE ONCE PO 09/02/21 14:00 09/02/21 14:01 DC 09/02/21 14:08 1,000 MG Vital Signs/I&O 09/02/21 13:37 Pulse 57 Resp 15 B/P (MAP) 158/57 (90) Pulse Ox 95 O2 Delivery Room Air Blood Pressure Mean: 90 Progress Progress Note : Progress Note 81-year-old male with above history coming in due to low blood pressure reading at home and feeling lightheaded at that time. ABCs were intact and vitals were stable on presentation. Physical exam reassuring with no focal abnormalities. Blood pressure here is actually slightly elevated which I would prefer given his situation. His heart rate is in the 40s to 50s, he says it has been like this for years and he follows a hospice team lead regarding this. EKG without any acute ischemic changes. Chest x-ray without acute findings. Troponin is undetectable and BNP is slightly elevated but not significant. On reassessment his blood pressure continues to not be low. I recommend he hold his lisinopril if it is continuing to have lows and he needs to follow-up with his regular doctor to see if they should lower the dose or potentially stop it as well as potentially the doxazosin. I believe the patient is stable for discharge with outpatient follow-up. He was sent home with strict return precautions. I told him to follow-up with his hospice team lead as well. Initial ECG Impression Date: Sep 02, 2021 Initial ECG Impression Time: 13:43 Initial ECG Rate: 46 Initial ECG Rhythm: S.Satya Comment Narrow QRS, normal axis, no significant ST changes or T wave abnormalities, PAC present Diagnostic Imaging Diagonstic Imaging: Xray Plain Films/CT/US/NM/MRI: chest Comments [facility]. [place], [place] NAME: [facility] REC#: [id number] PT STATUS: REG ER : 1940 PHYSICIAN: LUISA ONTIVEROS MD ADMIT DATE: 09/02/21/ER Draft Date of Exam:09/02/21 CHEST 1 VIEW, AP/PA ONLY Indication: Chest and right shoulder pain. Comparison: 11/06/2010. Discussion: Single portable upright view of the chest was obtained. Normal heart size. No consolidation, pleural fluid, or pneumothorax. No osseous abnormality. Impression: 1. Negative chest. Dictated on workstation # [id number] Dict: 09/02/21 1416 Trans: 09/02/21 1419 [facility] [id number] Interpreted by: LEISA GARCIA MD Electronically signed by: Departure Impression Primary Impression: Transient hypotension Additional Impression: Chest pressure Disposition: HOME, SELF-CARE Condition: Stable Departure-Patient Inst. Decision time for Depature: 15:12 Referrals: RENETTA JONAS MD (PCP/Family) Primary Care Physician Patient Instructions: Bradycardia (DC), Chest Pain (DC) Add. Discharge Instructions: Based on your labs and EKG it does not appear like you are having a heart attack or had 1. I think your blood pressure could be due to medication such as lisinopril as well as doxazosin. Please talk with your regular doctor about these as they may want to lower the doses or stop you to try different medicines. Continue to follow-up with your hospice team lead particularly about your low heart rate. LUISA ONTIVEROS MD Sep 02, 2021 13:58
[2021-09-02] MEDS: ACETAMINOPHEN 500 MG TAB (TYLENOL) PO ONE (14:08)
--- NOTE | 2021-09-02 14:19 | Diagnostic Imaging Report ---
Indication: Chest and right shoulder pain. Comparison: 11/06/2010. Discussion: Single portable upright view of the chest was obtained. Normal heart size. No consolidation, pleural fluid, or pneumothorax. No osseous abnormality. Impression: 1. Negative chest. Dictated by: Dictated on workstation # [id number]
[2021-09-02 14:20] LABS: BASOPHILS # (AUTO) 0.1 10^3/uL (0.0-0.1); BASOPHILS % (AUTO) 1 % (0-10); EOSINOPHILS # (AUTO) 0.4 10^3/uL (0.0-0.3); EOSINOPHILS % (AUTO) 5 % (0-10); HEMATOCRIT 43 % (40-54); HEMOGLOBIN 14.5 g/dL (13.3-17.7); LYMPHOCYTES # (AUTO) 1.9 10^3/uL (1.0-4.0); LYMPHOCYTES % (AUTO) 22 % (12-44); MEAN CORPUSCULAR HEMOGLOBIN 32 pg (25-34); MEAN CORPUSCULAR HGB CONC 34 g/dL (32-36); MEAN CORPUSCULAR VOLUME 93 fL (80-99); MEAN PLATELET VOLUME 12.4 fL (9.0-12.2); MONOCYTES # (AUTO) 0.8 10^3/uL (0.0-1.0); MONOCYTES % (AUTO) 10 % (0-12); NEUTROPHILS # (AUTO) 5.3 10^3/uL (1.8-7.8); NEUTROPHILS % (AUTO) 62 % (42-75); PLATELET COUNT 148 10^3/uL (130-400); WHITE BLOOD COUNT 8.5 10^3/uL (4.3-11.0)
[2021-09-02 14:40] LABS: ALBUMIN 3.8 GM/DL (3.2-4.5); BILIRUBIN,TOTAL 0.5 MG/DL (0.1-1.0); CALCIUM 8.8 MG/DL (8.5-10.1); CREATININE SERUM 0.83 MG/DL (0.60-1.30); MAGNESIUM 2.2 MG/DL (1.6-2.4); POTASSIUM 4.3 MMOL/L (3.6-5.0); TOTAL PROTEIN 6.3 GM/DL (6.4-8.2)
[2021-09-02 15:26] VITALS: BP 162/65
== END 2021-09-02 15:26 | disposition home or self-care (01) ==
LOC: ER 13:34
DX: I95.9 Hypotension, unspecified (principal); R07.89 Other chest pain; I10 Essential (primary) hypertension; Z79.899 Other long term (current) drug therapy
CPT/HCPCS: 36415; 71045; 80053; 83735; 83880; 84484; 85025; 85610; 85730; 93005; 93041

== ENCOUNTER → 2021-12-03 | Outpatient (CLI) | payer MEDICARE, OTHER ==
--- NOTE | 2021-12-03 15:46 | Diagnostic Imaging Report ---
INDICATION: Right breast lump. COMPARISON: No prior mammograms are available for comparison. TECHNIQUE: Unilateral right 2D and 3D diagnostic mammography was performed with CAD. FINDINGS: There is some mild fibroglandular tissue in the retroareolar right breast, suggestive of gynecomastia. No mass is detected. There are benign calcifications present. No malignant-appearing microcalcifications are seen. The right axilla is unremarkable. IMPRESSION: Features suggestive of gynecomastia, mild. Even so, further evaluation with ultrasound is recommended and will be performed today. ACR BI-RADS Category 0: Incomplete. (Needs additional imaging evaluation). Result letter will be mailed to the patient. Note: At least 10% of breast cancer is not imaged by mammography. Dictated by: Dictated on workstation # [id number]
--- NOTE | 2021-12-03 18:04 | Diagnostic Imaging Report ---
INDICATION: Right breast lump. CORRELATION is made with diagnostic mammogram earlier same day. Sonographic interrogation of the retroareolar right breast was performed. There is heterogeneous tissue suggestive of gynecomastia. No discrete breast mass is detected. IMPRESSION: BI-RADS Category 2 Feature suggestive of gynecomastia. ACR BI-RADS Category 2: Benign findings. Result letter will be mailed to the patient. Note: At least 10% of breast cancer is not imaged by mammography. Dictated by: Dictated on workstation # [id number]
== END ==
LOC: RAD 14:05
PROVIDERS: ATTEND Family Medicine
DX: N63.41 Unspecified lump in right breast, subareolar (principal); R20.8 Other disturbances of skin sensation
CPT/HCPCS: 76642; 77065; G0279

== ENCOUNTER → 2022-11-27 | Outpatient (CLI) | payer MEDICARE, OTHER ==
--- NOTE | 2022-11-27 09:50 | Diagnostic Imaging Report ---
PROCEDURE: US carotid duplex, bilateral. TECHNIQUE: Multiple real-time grayscale images were obtained over the carotid arteries in various projections, bilaterally. Additional spectral analysis and color Doppler duplex images were also obtained. INDICATION: Amaurosis fugax as well as transient ischemic attack. There is some mild plaquing noted in the right carotid bulb. Left carotid system is unremarkable. Velocities are unremarkable. No high-grade stenosis is identified. There is no occlusion. Both vertebral arteries demonstrate antegrade flow. IMPRESSION: No evidence of a hemodynamically significant stenosis. Parameters based on the consensus panel Gonzalez-Scale and Doppler ultrasound criteria published June 2003, Radiology, Volume 229. DOPPLER (peak systolic velocity M/S Right Left CCA .91 .79 ICA Proximal .55 .58 ICA Mid .57 .65 ICA Distal .98 .81 RATIO 1.1 1.0 ECA .82 1.4 VERT .48 .38 Dictated by: Dictated on workstation # [id number]
== END ==
LOC: RAD 08:36
PROVIDERS: ATTEND Internal Medicine
DX: G45.9 Transient cerebral ischemic attack, unspecified (principal)
CPT/HCPCS: 93880

== ENCOUNTER 2023-06-14 05:04 | Emergency (ER) | payer MEDICARE, OTHER ==
[~2023-06-14] VITALS: Ht 175.2 cm; Wt 63.5 kg
[2023-06-14 05:16] VITALS: BP 189/85
[2023-06-14] MEDS ORDERED: TETRACAINE 0.5% OPHTH SOLN 4 ML BTL (SINGLE DOSE ONLY) ONE (05:26)
[2023-06-14] MEDS: BSS 15 ML IR ONE ×2 (05:29→05:48)
[2023-06-14] MEDS ORDERED: TETRACAINE 0.5% OPHTH SOLN 5 ML BTL OU ONE (05:30)
[2023-06-14] MEDS ORDERED: FLUORESCEIN 1 MG OPHTHALMIC STRIPS OU ONE (05:30)
--- NOTE | 2023-06-14 05:43 | ED EENT ---
History of Present Illness General Chief Complaint: Eye Problems Stated Complaint: LEFT EYE PAIN Nursing Triage Note: PT AMB TO RM 6 W C/O LEFT EYE DISCOMFORT THAT WOKE HIM UP AT 0400. PT A&OX4, DENIES INJ AND VISUAL DIFFICULTIES. Source: patient History of Present Illness Date Seen by Provider: Jun 14, 2023 Time Seen by Provider: 05:18 Initial Comments PT ARRIVES VIA POV FROM HOME PT STATES HE WOKE UP AT 0400 AND HAD PAIN TO LEFT EYE AND FELT LIKE HE HAD SOMETHING IN HIS EYE NO KNOWN INJURY OR KNOWN FOREIGN BODY HE HAS BEEN RUBBING IT AND PUT "1 DROP" OF AN UNKNOWN EYE DROP INTO HIS EYE HE DENIES ANY DRAINAGE FROM THE EYE NO CHANGES IN VISION NO HEADACHE NO DIZZINESS PT HAS HAD CATARACT SURGERY IN THE PAST, AND WEARS READING GLASSES HE WEARS A COTTON SLEEP MASK TO SLEEP EVERY NIGHT. LAST TETANUS UNKNOWN DENIES ANY MEDICAL PROBLEMS--PER OLD RECORDS, PT HAS HTN, MOBITZ 1 AV BLOCK, ATOPIC DERMATITIS, AND MELANOMA OF FOREHEAD 2016. PCP: DR. JONAS Allergies and Home Medications Allergies Coded Allergies: Sulfa (Sulfonamide Antibiotics) (Unverified Allergy, Mild, 09/15/18) Patient Home Medication List Doxazosin Mesylate (Doxazosin Mesylate) 8 Mg Tablet, 8 MG PO HS, (Reported) Entered as Reported by: ARSLAN RODRIGUEZ on 02/21/20 115 Dutasteride (Dutasteride) 0.5 Mg Capsule, 0.5 MG PO HS, (Reported) Entered as Reported by: ARSLAN RODRIGUEZ on 02/21/20 1155 Gabapentin (Gabapentin) 100 Mg Capsule, 100 MG PO HS, (Reported) Entered as Reported by: ARSLAN RODRIGUEZ on 02/21/20 1155 Lisinopril/Hydrochlorothiazide (Lisinopril-Hctz 20-12.5 mg Tab) 1 Each Tablet, 1 EACH PO DAILY PRN for high blood pressure, (Reported) Entered as Reported by: ARSLAN RODRIGUEZ on 02/21/20 1155 Temazepam (Temazepam) 15 Mg Capsule, 15 MG PO HS, (Reported) Entered as Reported by: ARSLAN RODRIGUEZ on 02/21/20 1155 Review of Systems Review of Systems Constitutional: no symptoms reported Eyes: See HPI Neurological: No Symptoms Reported Past Ugpbqum-Kocapw-Hdwyhf Hx Patient Social History Tobacco Use?: No Use of E-Cig and/or Vaping dev: No Substance use?: No Alcohol Use?: No Immunizations Up To Date Tetanus Booster (TDap): Unknown First/Initial COVID19 Vaccinat: SPRING 2020 Second COVID19 Vaccination Manan: SPRING 2020 Third COVID19 Vaccination Date: JUNE 2021 Seasonal Allergies Seasonal Allergies: No Past Medical History Surgeries: Yes (ing hernia x3, hemorrhoidectomy, circ, knee scope, melanoma removed) Adenoidectomy, Orthopedic, Tonsillectomy Respiratory: No Cardiac: Yes Hypertension Neurological: No Reproductive Disorders: No Sexually Transmitted Disease: No Genitourinary: Yes Prostate Problems Gastrointestinal: Yes (LLQ abd pain, wt loss) Musculoskeletal: Yes Arthritis Endocrine: No HEENT: No Cancer: Yes Skin What Type of Treatment Did You: Surgical Intervention Psychosocial: No Integumentary: No Blood Disorders: No Physical Exam Vital Signs Vital Signs - First Documented 06/14/23 05:16 Temp 36.5 Pulse 52 Resp 18 B/P (MAP) 189/85 (119) Pulse Ox 99 O2 Delivery Room Air Height, Weight, BMI Height: 5'10.00" Weight: 160lbs. oz. 72.623837pt; 20.00 BMI Method:Stated Progress/Results/Core Measures Results/Orders My Orders Orders - CIARAN WAN DO Tetracaine 0.5% Ophth Soln (Tetravisc 0. (06/14/23 05:30) Fluorescein Ophthalmic Strips (Fluoresce (06/14/23 05:30) Balanced Salt Irrigation Soln (Bss Irrig (06/14/23 05:30) Tetracaine 0.5% Ophth Bianca Sdv (Tetracai (06/14/23 05:26) Dipht/Pertuss(Acell)/Tet Adult (Dipht/Pe (06/14/23 05:45) Rx-Ofloxacin 0.3% Ophth Soln (Rx-Ocuflox (06/14/23 08:00) Rx-Ofloxacin 0.3% Ophth Soln (Rx-Ocuflox (06/14/23 05:45) Medications Given in ED Current Medications Medications Dose Ordered Sig/Crissy Route Start Time Stop Time Status Last Admin Dose Admin Diphtheria/ Tetanus/Acell Pertussis 0.5 ml ONCE ONCE IM 06/14/23 05:45 06/14/23 05:46 DC 06/14/23 06:00 0.5 ML Fluorescein Sodium 1 mg ONCE ONCE OU 06/14/23 05:30 06/14/23 05:31 DC 06/14/23 05:29 1 MG Tetracaine HCl 4 ml STK-MED ONCE .ROUTE 06/14/23 05:26 06/14/23 05:28 DC 06/14/23 05:29 4 ML Vital Signs/I&O 06/14/23 05:16 Temp 36.5 Pulse 52 Resp 18 B/P (MAP) 189/85 (119) Pulse Ox 99 O2 Delivery Room Air Blood Pressure Mean: 119 Departure Impression Primary Impression: Corneal abrasion Additional Impression: Gzswfndber-nblmzsehp-egsbyya (DPT) vaccination administered at current visit Disposition: HOME, SELF-CARE Condition: Stable Departure-Patient Inst. Decision time for Depature: 05:40 Referrals: RENETTA JONAS MD (PCP/Family) Primary Care Physician Patient Instructions: Corneal Abrasion (DC), Diphtheria and Tetanus Toxoids, and Acellular Pertussis Vaccine Add. Discharge Instructions: DO NOT RUB THE EYE USE EYE DROPS DIRECTED YOU MAY TAKE TYLENOL AND IBUPROFEN NEEDED FOR PAIN FOLLOW UP WITH DR. ISRAEL, YOUR EYE ON FRIDAY FOR FURTHER CARE RETURN TO ER IF SYMPTOMS WORSEN All discharge instructions reviewed with patient and/or family. Voiced understanding. CIARAN WAN DO Jun 14, 2023 05:43
[2023-06-14] MEDS ORDERED: Tetanus/Diphtheria/Pertussis (Acell) ADULT Vaccine 0.5 ML IM ONE (05:45)
[2023-06-14] MEDS ORDERED: RX-OFLOXACIN 0.3% OPHTH SOLN 5 ML ONE (05:45)
[2023-06-14] MEDS ORDERED: RX-OFLOXACIN 0.3% OPHTH SOLN 5 ML OP SCH (08:00)
== END 2023-06-14 06:02 | disposition home or self-care (01) ==
LOC: EDUNIT# 05:04 → ER 05:05
DX: S05.02XA Injury of conjunctiva and corneal abrasion without foreign body, left eye, initial encounter (principal); Z23 Encounter for immunization; Z98.890 Other specified postprocedural states; X58.XXXA Exposure to other specified factors, initial encounter
CPT/HCPCS: 90471; 90715; 99284